=== PATIENT | male | born 1985 | race African-American/Black ===

== ENCOUNTER 2021-02-27 11:35 | Day surgery (SDC) | payer MEDICAID ==
[2021-02-26 09:41] LABS: COVID AG,FIA SOURCE NASOPHARYNGEAL
[~2021-02-27] VITALS: Ht 171.4 cm; Wt 122.7 kg
[~2021-02-27 11:35] MED LIST: SODIUM CHLORIDE 0.9% 1,000 ML ONE
[2021-02-27] MEDS ORDERED: SODIUM CHLORIDE 0.9% 1,000 ML IV ONE (12:00)
[2021-02-27] MEDS ORDERED: PROPOFOL 1% 20 ML VIAL IVP ONE (12:00)
== END 2021-02-27 15:15 | disposition home or self-care (01) ==
LOC: SURGERY 11:35
PROVIDERS: ATTEND Internal Medicine Gastroenterology
DX: K62.5 Hemorrhage of anus and rectum (principal); J45.909 Unspecified asthma, uncomplicated; Z80.0 Family history of malignant neoplasm of digestive organs; Z79.899 Other long term (current) drug therapy; E66.9 Obesity, unspecified; Z98.890 Other specified postprocedural states
CPT/HCPCS: 45378; 87426; C9803; J2704; J7030